=== PATIENT | female | born 1935 | race Caucasian/White ===

== ENCOUNTER 2017-01-31 04:40 | Emergency (ER) | payer MEDICARE ==
[2017-01-31] MEDS ORDERED: Sodium Chloride 0.9% 1000 ML 1,000 ML IV STA (04:55)
--- NOTE | 2017-01-31 04:58 | ERPHSYRPT ---
- History of Present Illness Time Seen by Provider: 01/31/17 04:57 Source: patient, EMS Exam Limitations: no limitations Patient Subjective Stated Complaint: N/V/D Triage Nursing Assessment: N/V/D beginning at 2300, states she also fell but denies injury. Pt states +LOC prior to falling. Emesis x4 episodes, diarrhea x4. Denies other complaints. Pt is A&O x4, no distress noted. Physician History: N/V/D beginning at 2300, states she also fell but denies injury. Pt states +LOC prior to falling. Emesis x4 episodes, diarrhea x4. Denies other complaints. Timing/Duration: today Associated Symptoms: nausea, vomiting Allergies/Adverse Reactions: Penicillins Allergy (Mild, Verified 02/06/14 09:56) Home Medications: Aspirin [Aspir 81] 81 mg PO DAILY 06/26/11 [History] Carvedilol 3.125 mg [Coreg 3.125 MG] 6.25 mg PO BID 06/26/11 [History] Atorvastatin Calcium [Lipitor] 20 mg PO QHS 01/31/17 [History] Isosorbide Mononitrate 60 mg [Imdur 60MG] 60 mg PO QAM 01/31/17 [History] Hx Tetanus, Diphtheria Vaccination/Date Given: No Hx Influenza Vaccination/Date Given: No Hx Pneumococcal Vaccination/Date Given: No Immunizations Up to Date: No - Review of Systems Constitutional: No Fever, No Chills Eyes: No Symptoms Ears, Nose, & Throat: No Symptoms Respiratory: No Cough, No Dyspnea Cardiac: No Chest Pain, No Edema, No Syncope Abdominal/Gastrointestinal: Nausea, Vomiting, No Abdominal Pain, No Diarrhea Genitourinary Symptoms: No Dysuria Musculoskeletal: No Back Pain, No Neck Pain Skin: No Rash Neurological: No Dizziness, No Focal Weakness, No Sensory Changes Psychological: No Symptoms Endocrine: No Symptoms All Other Systems: Reviewed and Negative - Past Medical History Pertinent Past Medical History: Yes Neurological History: No Pertinent History ENT History: Cataracts Cardiac History: Angina, Myocardial Infarction ([place]), Other Respiratory History: No Pertinent History Endocrine Medical History: No Pertinent History Musculoskeletal History: Arthritis GI Medical History: GERD, Gallbladder Disease History: No Pertinent History Psycho-Social History: No Pertinent History Female Reproductive Disorders: Abnormal Uterine Bleeding Other Medical History: HEART SURGERY APPROX. 7 YEARS AGO AND RECENTLY IN 05/25 SHE HAD 3 W[place]'S IN HOSPITAL AFTER HAVING ANGINA. SHE THEN HAD TO HAVE COLONOSCOPY AND THEN SHE FELL MOST RECENTLY. - Past Surgical History Past Surgical History: Yes Neuro Surgical History: No Pertinent History Cardiac: Angioplasty, CABG, Cardiac Catheterization, Cardiac Stent Respiratory: Chest Surgery Gastrointestinal: Appendectomy Genitourinary: No Pertinent History Musculoskeletal: No Pertinent History Female Surgical History: Hysterectomy Other Surgical History: "I HAVE TWO HERNIAS IN MY ABDOMEN BUT THEY DON'T WANT TO DO ANYTHING THEY SAY I AM TOO MUCH A RISK" "I HAD TWO NORMAL DELIVERIES A BOY AND A GIRL" - Social History Smoking Status: Never smoker Exposure to second hand smoke: No Drug Use: none Patient Lives Alone: No - Female History Hx Now: No - Nursing Vital Signs Nursing Vital Signs: Initial Vital Signs Temperature 97.9 F 01/31/17 04:42 Pulse Rate 76 01/31/17 04:42 Respiratory Rate 18 01/31/17 04:42 Blood Pressure 155/86 01/31/17 04:42 O2 Sat by Pulse Oximetry 96 01/31/17 04:42 Pain Scale Pain Intensity 0 - Physical Exam General Appearance: no apparent distress, alert Eye Exam: PERRL/EOMI, eyes nml inspection Ears, Nose, Throat Exam: normal ENT inspection, TMs normal, pharynx normal, moist mucous membranes Neck Exam: normal inspection, non-tender, supple, full range of motion Respiratory Exam: normal breath sounds, lungs clear, No respiratory distress Cardiovascular Exam: regular rate/rhythm, normal heart sounds, normal peripheral pulses Gastrointestinal/Abdomen Exam: soft, normal bowel sounds, No tenderness, No mass Back Exam: normal inspection, normal range of motion, No CVA tenderness, No vertebral tenderness Extremity Exam: normal inspection, normal range of motion, pelvis stable Neurologic Exam: alert, oriented x 3, cooperative, normal mood/affect, nml cerebellar function, nml station & gait, sensation nml, No motor deficits Skin Exam: normal color, warm, dry, No rash Lymphatic Exam: No adenopathy SpO2: 96 Oxygen Delivery: Room Air - Course Nursing assessment & vital signs reviewed: Yes Ordered Tests: Active Orders 24 hr Category Date Time Status IV Insertion STAT Care 01/31/17 05:16 Active Medication Summary Discontinued Medications Generic Name Dose Route Start Last Admin Trade Name Freq PRN Reason Stop Dose Admin Sodium Chloride 1,000 mls @ 999 mls/hr 01/31/17 04:55 01/31/17 05:13 Sodium Chloride 0.9% 1000 Ml IV 01/31/17 05:55 999 mls/hr .Q1H1M STA Administration Sodium Chloride Confirm 01/31/17 05:03 Sodium Chloride 0.9% 1000 Ml Administered 01/31/17 05:04 Dose 1,000 mls @ ud .ROUTE .STK-MED ONE Lab/Rad Data: Laboratory Results 01/31/17 Range/Units 05:04 Influenza Type A Ag NEGATIVE (NEGATIVE) Influenza Type B Ag NEGATIVE (NEGATIVE) RSV (PCR) NEGATIVE (Negative) - Progress Progress: improved Counseled pt/family regarding: lab results, diagnosis, need for follow-up - Departure Time of Disposition: 06:19 Departure Disposition: Home Clinical Impression: Acute viral syndrome Vomiting Qualifiers: Vomiting type: unspecified Vomiting Intractability: non-intractable Nausea presence: without nausea Qualified Code(s): R11.11 - Vomiting without nausea Condition: Stable Critical Care Time: No Referrals: DARINEL CORONA MD [Primary Care Provider] - Instructions: Vomiting -- Adult Additional Instructions: VIRAL ILLNESS 1. Rest at home and take any prescribed medications as directed or until gone. 2. Offer plenty of fluids as tolerated. 3. Acetaminophen or Ibuprofen as directed. 4. Be sure to follow up with your family physician or return to the emergency department if symptoms change or become worse. VOMITING AND DIARRHEA 1. Take only small amounts of clear, cool liquids at frequent intervals as tolerated for the next 24-48 hours. Avoid milk products and orange juice. Clear liquids are those liquids which you can see through. 2. Pedialyte and popsicles are recommended clear liquids. 3. If the condition worsens you should contact your family physician or return to the emergency department for re-evaluation. Prescriptions: Ondansetron HCl [Zofran] 4 mg PO QID #20 tablet
[2017-01-31] MEDS ORDERED: Sodium Chloride 0.9% 1000 ML 1,000 ML ONE (05:03)
[2017-01-31 06:43] VITALS: BP 153/75; PULSE 75; O2SAT 99
== END 2017-01-31 06:45 | disposition home or self-care (01) ==
LOC: ED 04:40
DX: R11.11 Vomiting without nausea (principal); B34.9 Viral infection, unspecified; R19.7 Diarrhea, unspecified; I25.2 Old myocardial infarction
CPT/HCPCS: 36000; 87631; 99284